=== PATIENT | male | born 1985 ===

== ENCOUNTER 2018-05-06 17:35 | Outpatient (REF) | payer MEDICAID, SELFPAY ==
[2018-05-06 22:01] LABS: ALT 58 U/L (12-78); AST 31 U/L (15-37); Albumin 4.5 g/dL (3.4-5.0); Alkaline Phosphatase 70 U/L (46-116); Anion Gap 8.9 mmol/L (3-11); BUN 19 mg/dL (7-18); Bilirubin, Total 0.4 mg/dL (0.2-1.0); CO2 31.1 mmol/L (21.0-32.0); CREATININE 1.16 mg/dL (0.70-1.30); Calcium 9.6 mg/dL (8.5-10.1); Chloride 99 mmol/L (98-107); Cholesterol 226 mg/dL (50-200); Glucose 70 mg/dL (70-100); HDL Cholesterol 42 mg/dL (40-60); LDL CHOLESTEROL 153 mg/dL (<100); Potassium 4.3 mmol/L (3.5-5.1); Sodium 139 mmol/L (136-145); Total Protein 7.9 g/dL (6.4-8.2); Triglyceride 288 mg/dL (30-150)
== END 2018-05-06 17:55 ==
LOC: NCHCN 17:35
PROVIDERS: PCP Registered Nurse; Visit Provider Registered Nurse
DX: R10.11 Right upper quadrant pain (principal)
CPT/HCPCS: 80053; 80061; 83721